=== PATIENT | female | born 1955 | race Caucasian/White ===

== ENCOUNTER → 2016-07-29 | Outpatient (CLI) | payer OTHER ==
[2016-07-29 14:20] LABS: BASO # 0.1 K/mm3 (0.0-0.2); BASO % 1.1 % (0.0-1.0); EOS # 0.4 K/mm3 (0.0-0.50); EOS % 6.4 % (0.0-3.0); LARGE UNSTAINED CELL # 0.1 K/mm3 (0.0-0.4); LYMPH # 1.7 K/mm3 (1.5-4.5); LYMPH % 26.6 % (24.0-44.0); MEAN CORPUSCULAR HEMOGLOBIN 22.8 pg (27.0-33.0); MEAN CORPUSCULAR HGB CONC 29.7 g/dl (32.0-36.5); MEAN CORPUSCULAR VOLUME 76.7 fl (80.0-96.0); MONO # 0.3 K/mm3 (0.0-0.8); MONO % 5.1 % (0.0-5.0); NEUTROPHILS # 3.4 K/mm3 (1.8-7.7); NEUTROPHILS % 58.7 % (36.0-66.0); PLATELET COUNT, AUTOMATED 489 k/mm3 (150-450); RED CELL DISTRIBUTION WIDTH 16.1 % (11.5-14.5); WHITE BLOOD COUNT 5.8 K/mm3 (4.0-10.0)
[2016-07-29 14:44] LABS: ALBUMIN 3.6 GM/DL (3.2-5.2); ALBUMIN/GLOBULIN RATIO 0.97 (1.00-1.93); ALKALINE PHOSPHATASE 99 U/L (45-117); ALT/SGPT 24 U/L (12-78); ANION GAP 6 MEQ/L (8-16); AST/SGOT 28 U/L (15-37); BILIRUBIN,TOTAL 0.3 MG/DL (0.2-1.0); BLOOD UREA NITROGEN 20 MG/DL (7-18); CALCIUM LEVEL 9.2 MG/DL (8.8-10.2); CARBON DIOXIDE LEVEL 30 MEQ/L (21-32); CHLORIDE LEVEL 106 MEQ/L (98-107); CREATININE FOR GFR 0.66 MG/DL (0.55-1.02); GLOMERULAR FILTRATION RATE > 60.0 (>45); GLUCOSE, FASTING 101 MG/DL (80-110); POTASSIUM SERUM 4.3 MEQ/L (3.5-5.1); SODIUM LEVEL 142 MEQ/L (136-145); TOTAL PROTEIN 7.3 GM/DL (6.4-8.2)
[2016-07-29 14:47] LABS: FOLATE 13.1 NG/ML (>5.4); VITAMIN B12 LEVEL 1609 PG/ML (247-911)
== END ==
LOC: M LAB 13:52
PROVIDERS: ATTEND Psychiatry & Neurology Neurology
DX: G35 Multiple sclerosis (principal)

== ENCOUNTER → 2016-09-14 | Outpatient (CLI) | payer OTHER ==
[~2016-09-14] MED LIST: VARIBAR PUDDING 40% w/v 230ML TUBE As Ordered ONE
--- NOTE | 2016-09-14 16:09 | REP ---
COOKIE SWALLOW: The procedure was performed under the direct supervision of Dr. Rivero. The procedure was performed with Fiorella Abdul from speech pathology present. 5 mL aliquots of nectar pudding solid and thin consistency barium was administered. There is no evidence of penetration or aspiration. A detailed report of this examination will be provided by speech pathology. 32 seconds of fluoroscopy time was utilized for this procedure. Reviewed by TIANNA Valdovinos 09/14/2016 04:24 PEdited and Signed by Gordo Rivero MD 09/15/2016 05:17 P
== END ==
LOC: M ST 09:53
PROVIDERS: ATTEND Psychiatry & Neurology Neurology
DX: R13.10 Dysphagia, unspecified (principal)

== ENCOUNTER → 2017-08-11 | Outpatient (REF) | payer OTHER ==
[2017-08-11 12:27] LABS: VITAMIN B12 LEVEL 370 PG/ML
[2017-08-11 12:29] LABS: FOLATE > 24.0 NG/ML
[2017-08-11 12:34] LABS: FERRITIN 6 NG/ML (8-252); IRON (FE) 20 UG/DL (50-170); TOTAL IRON BINDING CAPACITY 404 UG/DL (250-450)
== END ==
LOC: M LAB REF 11:36
DX: D64.9 Anemia, unspecified (principal)

== ENCOUNTER 2017-11-08 10:22 | Day surgery (SDC) | payer OTHER ==
[~2017-11-08 10:22] MED LIST changes: +LIDOCAINE 2% MDV 20 ML VIAL As Ordered; +PROPOFOL 200 MG/20 ML VIAL As Ordered; -VARIBAR PUDDING 40% w/v 230ML TUBE As Ordered ONE
[2017-11-08] MEDS: NS 1,000 ML IV (10:52)
[2017-11-08] MEDS ORDERED: PROPOFOL 200 MG/20 ML VIAL As Ordered (12:26)
== END 2017-11-08 13:02 | disposition home or self-care (01) ==
LOC: M OPP 10:22
DX: K64.0 First degree hemorrhoids (principal); D50.9 Iron deficiency anemia, unspecified; K44.9 Diaphragmatic hernia without obstruction or gangrene; G47.30 Sleep apnea, unspecified; E03.9 Hypothyroidism, unspecified; J44.9 Chronic obstructive pulmonary disease, unspecified; F41.9 Anxiety disorder, unspecified; F32.9 Major depressive disorder, single episode, unspecified; R51 Headache; G35 Multiple sclerosis; M32.9 Systemic lupus erythematosus, unspecified; M17.0 Bilateral primary osteoarthritis of knee; Z79.899 Other long term (current) drug therapy; Z78.0 Asymptomatic menopausal state; Z96.641 Presence of right artificial hip joint
CPT/HCPCS: 45378

== ENCOUNTER → 2018-04-18 | Outpatient (CLI) | payer OTHER ==
[~2018-04-18] MED LIST changes: +AVON1KIT SQ; +FISH1000 PO; +FOLI1TAB11 PO; +HYDR200T3 PO; +IRON325T7 PO; +LEVO150T7 PO; +LEXA1TAB2 PO; -LIDOCAINE 2% MDV 20 ML VIAL As Ordered; +MULTCAP PO; +OMEP40CA2 PO; -PROPOFOL 200 MG/20 ML VIAL As Ordered
--- NOTE | 2018-04-18 10:04 | REP ---
Chest two views HISTORY: Shortness of breath Comparison: 08/16/2017 A minimal increase in interstitial markings is present in the lungs consistent with chronic interstitial fibrosis. The cardiac silhouette is enlarged. The thoracic aorta is tortuous. The pulmonary vasculature is normal in appearance. Degenerative change is present in the thoracic spine. IMPRESSION: 1. Chronic interstitial fibrosis. 2. Cardiomegaly. Electronically Signed by Abbe Noel MD 04/18/2018 09:55 A
[2018-04-18 11:56] LABS: BASO # 0.1 10^3/uL (0.0-0.2); BASO % 1.2 % (0.0-1.0); EOS # 0.2 10^3/uL (0.0-0.50); HEMATOCRIT 42.2 % (36.0-47.0); HEMOGLOBIN 13.4 g/dl (12.0-15.5); LYMPH # 2.1 10^3/uL (1.5-4.5); LYMPH % 35.9 % (24.0-44.0); MEAN CORPUSCULAR HEMOGLOBIN 29.3 pg (27.0-33.0); MEAN CORPUSCULAR HGB CONC 31.8 g/dl (32.0-36.5); MEAN CORPUSCULAR VOLUME 92.1 fl (80.0-96.0); MONO # 0.5 10^3/uL (0.0-0.8); MONO % 7.9 % (0.0-5.0); NEUTROPHILS % 50.8 % (36.0-66.0); PLATELET COUNT, AUTOMATED 300 10^3/uL (150-450); RED BLOOD COUNT 4.58 10^6/uL (4.00-5.40); WHITE BLOOD COUNT 5.9 10^3/uL (4.0-10.0)
[2018-04-18 12:19] LABS: BLOOD UREA NITROGEN 16 MG/DL (7-18); CALCIUM LEVEL 9.2 MG/DL (8.8-10.2); CARBON DIOXIDE LEVEL 28 MEQ/L (21-32); CHLORIDE LEVEL 105 MEQ/L (98-107); CREATININE FOR GFR 0.62 MG/DL (0.55-1.30); GLOMERULAR FILTRATION RATE > 60.0 (>45); GLUCOSE, FASTING 80 MG/DL (70-100); POTASSIUM SERUM 4.7 MEQ/L (3.5-5.1); SODIUM LEVEL 140 MEQ/L (136-145)
[2018-04-18 12:20] LABS: ALBUMIN 3.7 GM/DL (3.2-5.2); ALT/SGPT 34 U/L (12-78); BILIRUBIN,TOTAL 0.5 MG/DL (0.2-1.0); TOTAL PROTEIN 7.3 GM/DL (6.4-8.2)
== END ==
LOC: M WUC 09:38
PROVIDERS: ATTEND Physician Assistant
DX: R06.02 Shortness of breath (principal); J84.9 Interstitial pulmonary disease, unspecified; I51.7 Cardiomegaly

== ENCOUNTER → 2018-07-17 | Outpatient (REF) | payer OTHER ==
[~2018-07-17] MED LIST changes: +FERR325T82 PO; -IRON325T7 PO
[2018-07-17 18:25] LABS: C REACTIVE PROTEIN QUANTITATIV 0.89 MG/DL (0.00-0.30)
== END ==
LOC: M LAB REF 17:31
PROVIDERS: ATTEND Nurse Practitioner Family
DX: M32.9 Systemic lupus erythematosus, unspecified (principal)

== ENCOUNTER → 2018-07-31 | Outpatient (REF) | payer OTHER ==
[2018-07-31 18:03] LABS: BASO # 0.1 10^3/uL (0.0-0.2); BASO % 0.8 % (0.0-1.0); EOS # 0.3 10^3/uL (0.0-0.50); EOS % 4.3 % (0.0-3.0); HEMATOCRIT 39.4 % (36.0-47.0); HEMOGLOBIN 12.3 g/dl (12.0-15.5); LYMPH # 2.4 10^3/uL (1.5-4.5); LYMPH % 36.5 % (24.0-44.0); MEAN CORPUSCULAR HEMOGLOBIN 28.4 pg (27.0-33.0); MEAN CORPUSCULAR HGB CONC 31.2 g/dl (32.0-36.5); MONO # 0.4 10^3/uL (0.0-0.8); MONO % 6.8 % (0.0-5.0); NEUTROPHILS # 3.3 10^3/uL (1.8-7.7); NEUTROPHILS % 51.3 % (36.0-66.0); PLATELET COUNT, AUTOMATED 309 10^3/uL (150-450); RED BLOOD COUNT 4.33 10^6/uL (4.00-5.40); WHITE BLOOD COUNT 6.5 10^3/uL (4.0-10.0)
[2018-07-31 18:07] LABS: ALBUMIN 3.8 GM/DL (3.2-5.2); ALT/SGPT 29 U/L (12-78); BILIRUBIN,TOTAL 0.4 MG/DL (0.2-1.0); BLOOD UREA NITROGEN 21 MG/DL (7-18); CALCIUM LEVEL 9.3 MG/DL (8.8-10.2); CARBON DIOXIDE LEVEL 28 MEQ/L (21-32); CHLORIDE LEVEL 103 MEQ/L (98-107); CREATININE FOR GFR 0.62 MG/DL (0.55-1.30); GLOMERULAR FILTRATION RATE > 60.0 (>45); GLUCOSE, FASTING 87 MG/DL (70-100); POTASSIUM SERUM 4.5 MEQ/L (3.5-5.1); SODIUM LEVEL 137 MEQ/L (136-145); TOTAL 25(OH) VITAMIN D 33.1 NG/ML (30.0-100.0); TOTAL PROTEIN 6.9 GM/DL (6.4-8.2); VITAMIN B12 LEVEL 520 PG/ML
[2018-07-31 18:08] LABS: FOLATE 18.4 NG/ML
[2018-08-02 10:14] LABS: HERPES ZOSTER, VARICELLA IgG >4000 index (Immune >165)
== END ==
LOC: M LABNEURO 14:56
PROVIDERS: ATTEND Psychiatry & Neurology Neurology
DX: G35 Multiple sclerosis (principal)

== ENCOUNTER → 2018-08-16 | Outpatient (CLI) | payer OTHER ==
--- NOTE | 2018-08-16 11:32 | REP ---
Clinical: Venous insufficiency . Technique: Rivero scale and color Doppler evaluation using linear high frequency transducer with reflux evaluation. Findings: Ultrasound examination of the right and left lower extremity deep venous structures from the common femoral vein to the popliteal vein demonstrates normal compressibility flow and wave patterns in response to respiration and augmentation. There is no evidence for deep venous thrombosis. Complex left Kang's cyst measures 6.8 x 2.5 x 3.9 cm. Right lower extremity demonstrates reflux through the proximal saphenous vein measuring 8.5 mm diameter with reflux duration 5.4 seconds and of the distal greater saphenous vein at the knee measuring 3.7 mm diameter with reflux duration 7.1 seconds. Lesser saphenous vein demonstrates reflux and measures 3.2 mm diameter with reflux duration 7.1 seconds. Reflux also identified through the proximal/mid superficial femoral vein. Left lower extremity demonstrates no significant reflux. Impression: 1. No evidence for deep venous thrombosis. 2. Reflux noted through portions of the right deep and superficial systems as described above and detailed in the accompanying worksheet. 3. Complex Kang's cyst in the left popliteal fossa. Electronically Signed by Marky De La O MD 08/16/2018 11:24 A
== END ==
LOC: M RAD 08:41
PROVIDERS: ATTEND Surgery Vascular Surgery
DX: I87.2 Venous insufficiency (chronic) (peripheral) (principal); M71.22 Synovial cyst of popliteal space [Baker], left knee

== ENCOUNTER → 2019-01-24 | Outpatient (REF) | payer OTHER ==
[~2019-01-24] MED LIST changes: -OMEP40CA2 PO; +OMEP40CA97 PO
== END ==
LOC: M LAB REF 14:38
PROVIDERS: ATTEND Radiology Diagnostic Radiology
DX: N60.21 Fibroadenosis of right breast (principal)

== ENCOUNTER 2020-03-07 09:59 | Emergency (ER) | payer MEDICARE, OTHER ==
[~2020-03-07] VITALS: Ht 175.3 cm; Wt 118.2 kg
[2020-03-07] MEDS ORDERED: ONDA4TAB6 PO (10:13)
[2020-03-07] MEDS ORDERED: NS 1,000 ML IV ONE (10:30)
[2020-03-07] MEDS ORDERED: METOCLOPRAMIDE INJ 10MG/2ML VIAL (J2765 PER 1) IV ONE (11:00)
--- NOTE | 2020-03-07 12:41 | REP ---
INDICATION: cough, sob COVID +. COMPARISON: 04/18/2018. TECHNIQUE: SINGLE PORTABLE AP VIEW OF THE CHEST WAS PERFORMED. FINDINGS: Mild scattered interstitial fibrotic changes stable. There is no acute infiltrate. There is mild cardiomegaly. There is mild tortuosity of the thoracic aorta. The mediastinal silhouette is unchanged. IMPRESSION: Mild cardiomegaly and chronic changes. No acute infiltrate. <Electronically signed by Gordo Rivero > 03/07/20 0639
[2020-03-07 12:46] LABS: BASO % 0.5 % (0.0-1.0); EOS % 0.3 % (0.0-3.0); HEMATOCRIT 38.8 % (36.0-47.0); HEMOGLOBIN 11.5 g/dl (12.0-15.5); LYMPH # 0.8 10^3/uL (1.5-5.0); LYMPH % 19.7 % (24.0-44.0); MEAN CORPUSCULAR HEMOGLOBIN 25.4 pg (27.0-33.0); MEAN CORPUSCULAR HGB CONC 29.6 g/dl (32.0-36.5); MEAN CORPUSCULAR VOLUME 85.8 fl (80.0-96.0); MONO # 0.2 10^3/uL (0.0-0.8); MONO % 5.8 % (0.0-5.0); NEUTROPHILS # 2.8 10^3/uL (1.5-8.5); NEUTROPHILS % 73.4 % (36.0-66.0); PLATELET COUNT, AUTOMATED 202 10^3/uL (150-450); RED BLOOD COUNT 4.52 10^6/uL (4.00-5.40); WHITE BLOOD COUNT 3.8 10^3/uL (4.0-10.0)
[2020-03-07 12:59] LABS: INR 0.93; PROTHROMBIN TIME 12.7 SECONDS (12.5-14.3)
[2020-03-07 13:11] LABS: ALT/SGPT 25 U/L (12-78); BLOOD UREA NITROGEN 11 MG/DL (7-18); CALCIUM LEVEL 8.1 MG/DL (8.8-10.2); CARBON DIOXIDE LEVEL 28 MEQ/L (21-32); CHLORIDE LEVEL 106 MEQ/L (98-107); CREATININE FOR GFR 0.55 MG/DL (0.55-1.30); GLOMERULAR FILTRATION RATE > 60.0 (>45); GLUCOSE, FASTING 96 MG/DL (70-100); POTASSIUM SERUM 3.6 MEQ/L (3.5-5.1); SODIUM LEVEL 137 MEQ/L (136-145)
[2020-03-07 13:12] LABS: ALBUMIN 3.1 GM/DL (3.2-5.2); BILIRUBIN,TOTAL 0.5 MG/DL (0.2-1.0); C REACTIVE PROTEIN QUANTITATIV 3.87 MG/DL (0.00-0.30); CK-MB VALUE MASS 2.6 NG/ML (<3.6); CPK CREATINE PHOSPHOKINASE 300 U/L (26-192); LDH LACTATE DEHYDROGENASE 239 U/L (84-246); MB/CK RELATIVE INDEX 0.87 (< OR =4); TOTAL PROTEIN 6.7 GM/DL (6.4-8.2); TROPONIN I < 0.02 NG/ML (< 0.10)
[2020-03-07] MEDS ORDERED: NS 1,000 ML IV SCH (14:57)
[2020-03-07] MEDS ORDERED: diphenhydrAMINE 50MG/ML VIAL (J1200) IV PRN (15:00)
[2020-03-07] MEDS ORDERED: EPINEPHrine INJ 1 MG/ML 1ML AMP IM PRN (15:00)
[2020-03-07] MEDS ORDERED: ALBUTEROL SULFATE 2.5 MG/0.5 ML INH NEB SOLN INH PRN (15:00)
[2020-03-07] MEDS ORDERED: methylPREDNISolone 125MG 2ML VIAL IV PRN (15:00)
[2020-03-07] MEDS ORDERED: BAMLANIVIMAB 700 MG in NS 180 ML IV ONE (15:00)
[2020-03-07] MEDS ORDERED: ALBUTEROL 90 MCG/ACT 8GM HFA INHALER INH PRN (15:00)
--- NOTE | 2020-03-07 15:05 | IPNPDOC ---
Text Note Date of Service The patient was seen on 03/07/20. NOTE Subjective: patient was seen and examined at bedside. She presented to ED, p ositive for COVID-19. Saturating on RA at 94%, including on exertion. Would like Bamlanivimab infusion. Objective General: appears well, not in distress, not SOB HEENT: PERRLA, EOMI Neck: supple, normal ROM CVS: RRR, normal S1, S2 Lungs: reduced air entry b/l, otherwise clear, no wheeze, no rales, no crackles Abdo: soft, on tender, BS+ Skin: warm and dry Neuro: moving all 4 extremities Psych: AAOx 3 Assessment: 64 yo F with a hx of SLE, COPD, CP, presented to ED, COVID-19 +, for bamlanivimab infusion. Plan - labs and vitals reviewed - risks including anaphylaxis and in rare circumstances were explained. Consent form signed - COVID-19 Outpatient order set ordered. - proceed to bamlanivimad infusion - observe after admin for SS of anaphylaxis. - DC home upon completion. VS,Yovanibone, I+O VS, Fishbone, I+O Laboratory Tests 03/07/20 12:33 Vital Signs Date Time Temp Pulse Resp B/P (MAP) Pulse Ox O2 Delivery O2 Flow Rate FiO2 03/07/20 11:21 Automatic Cuff (NIBP) 03/07/20 10:00 98.3 86 20 94 Room Air ARINA STRICKLAND MD Mar 07, 2020 15:05
[2020-03-07 17:53] VITALS: BP 152/89
== END 2020-03-07 17:49 | disposition home or self-care (01) ==
LOC: EEVIPCON 09:59 → M ED 09:59
DX: U07.1 COVID-19 (principal); Z20.828 Contact with and (suspected) exposure to other viral communicable diseases; J44.9 Chronic obstructive pulmonary disease, unspecified; M32.9 Systemic lupus erythematosus, unspecified; G35 Multiple sclerosis; R50.9 Fever, unspecified; R05 Cough; R07.0 Pain in throat; M79.10 Myalgia, unspecified site; R09.82 Postnasal drip; R11.0 Nausea; R43.9 Unspecified disturbances of smell and taste; Z79.899 Other long term (current) drug therapy
CPT/HCPCS: 36415; 71045; 80053; 82550; 82553; 83605; 83615; 83735; 84145; 84484; 85025; 85610; 85730; 86140; 87486; 87581; 87633; 87798; 96361; 96374; 99283; J2765

== ENCOUNTER 2020-03-07 18:11 | Outpatient (CLI) | payer OTHER ==
[~2020-03-07] VITALS: Ht 176.5 cm; Wt 119.0 kg
[2020-03-07 17:52] VITALS: BP 142/86
[~2020-03-07 18:11] MED LIST changes: +ONDA4TAB6 PO
[2020-03-07] MEDS ORDERED: NS 1,000 ML IV SCH (19:04)
[2020-03-07] MEDS ORDERED: EPINEPHrine INJ 1 MG/ML 1ML AMP IM PRN (19:15)
[2020-03-07] MEDS ORDERED: ALBUTEROL SULFATE 2.5 MG/0.5 ML INH NEB SOLN INH PRN (19:15)
[2020-03-07] MEDS ORDERED: diphenhydrAMINE 50MG/ML VIAL (J1200) IV PRN (19:15)
[2020-03-07] MEDS ORDERED: methylPREDNISolone 125MG 2ML VIAL IV PRN (19:15)
[2020-03-07] MEDS ORDERED: ALBUTEROL 90 MCG/ACT 8GM HFA INHALER INH PRN (19:15)
[2020-03-07 21:14] VITALS: BP 139/75
[2020-03-07] MEDS ORDERED: BAMLANIVIMAB 700 MG in NS 180 ML IV ONE (21:30)
[2020-03-07 22:56] VITALS: BP 155/75
[2020-03-07 23:03] VITALS: BP 141/71
[2020-03-07 23:15] VITALS: BP 142/73
[2020-03-07 23:30] VITALS: BP 143/75
[2020-03-08] VITALS: BP 148/75
[2020-03-08 00:25] VITALS: BP 151/79
[2020-03-08 00:49] VITALS: BP 150/68
[2020-03-08 01:20] VITALS: BP 144/66
[2020-03-08 01:48] VITALS: BP 150/79
== END 2020-03-08 02:05 | disposition home or self-care (01) ==
LOC: M OPCLI4 18:11
PROVIDERS: ATTEND Family Medicine
DX: U07.1 COVID-19 (principal)
CPT/HCPCS: 96365; 96366; J1200

== ENCOUNTER 2020-03-16 13:42 | Inpatient (IN) | payer OTHER ==
[2020-03-16] MEDS ORDERED: NS 500 ML IV ONE (14:45)
[2020-03-16 15:37] LABS: BASO % 0.5 % (0.0-1.0); EOS # 0.1 10^3/uL (0.0-0.5); EOS % 1.4 % (0.0-3.0); HEMATOCRIT 37.6 % (36.0-47.0); HEMOGLOBIN 11.6 g/dl (12.0-15.5); LYMPH # 1.1 10^3/uL (1.5-5.0); LYMPH % 12.7 % (24.0-44.0); MEAN CORPUSCULAR HEMOGLOBIN 25.7 pg (27.0-33.0); MEAN CORPUSCULAR HGB CONC 30.9 g/dl (32.0-36.5); MEAN CORPUSCULAR VOLUME 83.4 fl (80.0-96.0); MONO # 0.6 10^3/uL (0.0-0.8); MONO % 7.2 % (0.0-5.0); NEUTROPHILS # 6.6 10^3/uL (1.5-8.5); NEUTROPHILS % 77.7 % (36.0-66.0); PLATELET COUNT, AUTOMATED 385 10^3/uL (150-450); RED BLOOD COUNT 4.51 10^6/uL (4.00-5.40); WHITE BLOOD COUNT 8.4 10^3/uL (4.0-10.0)
[2020-03-16 15:49] LABS: PARTIAL THROMBOPLASTIN TIME 30.4 SECONDS (24.2-38.5)
[2020-03-16 15:52] LABS: INR 1.05; PROTHROMBIN TIME 13.9 SECONDS (12.5-14.3)
[2020-03-16 16:07] LABS: ALBUMIN 2.7 GM/DL (3.2-5.2); ALT/SGPT 25 U/L (12-78); AMYLASE 36 U/L (25-115); BILIRUBIN,DIRECT 0.2 MG/DL (0.0-0.2); BILIRUBIN,TOTAL 0.9 MG/DL (0.2-1.0); BLOOD UREA NITROGEN 9 MG/DL (7-18); CARBON DIOXIDE LEVEL 31 MEQ/L (21-32); CHLORIDE LEVEL 99 MEQ/L (98-107); CK-MB VALUE MASS 3.1 NG/ML (<3.6); CPK CREATINE PHOSPHOKINASE 204 U/L (26-192); CREATININE FOR GFR 0.62 MG/DL (0.55-1.30); GLOMERULAR FILTRATION RATE > 60.0 (>45); GLUCOSE, FASTING 99 MG/DL (70-100); LIPASE 107 U/L (73-393); MB/CK RELATIVE INDEX 1.52 (< OR =4); POTASSIUM SERUM 3.3 MEQ/L (3.5-5.1); SODIUM LEVEL 137 MEQ/L (136-145); TOTAL PROTEIN 6.7 GM/DL (6.4-8.2); TROPONIN I < 0.02 NG/ML (< 0.10)
[2020-03-16] MEDS ORDERED: MORPHINE 2 MG/ML 1ML VIAL (J2270) IV PRN (18:15)
[2020-03-16] MEDS ORDERED: ISOVUE-370 76% 100ML VIAL As Ordered ONE (18:56)
[2020-03-16] MEDS ORDERED: ONDANSETRON 4MG/2ML VIAL IV ONE (19:30)
--- NOTE | 2020-03-16 19:56 | REPVR ---
PROCEDURE INFORMATION: Exam: CT Abdomen And Pelvis With Contrast Exam date and time: 03/16/2020 7:35 PM Age: 64 years old Clinical indication: Vomiting; Additional info: Intractable vomiting/covid TECHNIQUE: Imaging protocol: Computed tomography of the abdomen and pelvis with intravenous contrast. Radiation optimization: All CT scans at this facility use at least one of these dose optimization techniques: automated exposure control; mA and/or kV adjustment per patient size (includes targeted exams where dose is matched to clinical indication); or iterative reconstruction. Contrast material: ISOVUE 370; Contrast volume: 100 ml; Contrast route: INTRAVENOUS (IV); COMPARISON: No relevant prior studies available. FINDINGS: Lungs: Bibasilar semi-solid and solid pulmonary parenchymal infiltrates. Findings consistent with multifocal viral pneumonitis (organizing type) and known Covid diagnosis. Pleural space: Small right pleural effusion. Mediastinal space: A moderate para esophageal hiatal hernia is present. Liver: There is a diffuse decrease in hepatic parenchymal density, consistent with steatosis. Gallbladder and bile ducts: There are gallstones present. There is a suggestion of mild gallbladder wall thickening demonstrated. Correlation with ultrasound suggested. Pancreas: Normal. No ductal dilation. Spleen: Normal. No splenomegaly. Adrenal glands: Normal. No mass. Kidneys and ureters: Normal. No hydronephrosis. Stomach and bowel: Unremarkable. No obstruction. No mucosal thickening. Appendix: No evidence of appendicitis. Intraperitoneal space: Unremarkable. No free air. No significant fluid collection. Vasculature: Unremarkable. No abdominal aortic aneurysm. Lymph nodes: Unremarkable. No enlarged lymph nodes. Urinary bladder: Unremarkable as visualized. Reproductive: Abnormal widening of the endometrial canal measuring 1.5 cm. Findings worrisome for neoplasm in this age group. Correlation with ultrasound and possibly pelvic MRI suggested if deemed clinically appropriate. Bones/joints: Severe central spinal stenosis L3-L4 and moderate to severe central spinal stenosis L4-L5. Bilateral facet joint arthropathy L5-S1. Status post right hip arthroplasty. Soft tissues: See "Reproductive" finding. IMPRESSION: 1. Bibasilar semi-solid and solid pulmonary parenchymal infiltrates. Findings consistent with multifocal viral pneumonitis (organizing type) and known Covid diagnosis. 2. Small right pleural effusion. 3. There is a diffuse decrease in hepatic parenchymal density, consistent with steatosis. 4. There are gallstones present. There is a suggestion of mild gallbladder wall thickening demonstrated. Correlation with ultrasound suggested. 5. Abnormal widening of the endometrial canal measuring 1.5 cm. Findings worrisome for neoplasm in this age group. Correlation with ultrasound and possibly pelvic MRI suggested if deemed clinically appropriate. 6. A moderate para esophageal hiatal hernia is present. Electronically signed by: Niko Rodgers On 03/16/2020 19:57:09 PM
--- NOTE | 2020-03-16 20:02 | REPVR ---
PROCEDURE INFORMATION: Exam: CT Angiography Chest With Contrast Exam date and time: 03/16/2020 7:35 PM Age: 64 years old Clinical indication: Shortness of breath; Additional info: Shortness of breath, covid TECHNIQUE: Imaging protocol: Computed tomographic angiography of the chest with intravenous contrast. 3D rendering (Not supervised by radiologist): MIP and/or 3D reconstructed images were created by the technologist. Radiation optimization: All CT scans at this facility use at least one of these dose optimization techniques: automated exposure control; mA and/or kV adjustment per patient size (includes targeted exams where dose is matched to clinical indication); or iterative reconstruction. Contrast material: ISOVUE 370; Contrast volume: 100 ml; Contrast route: INTRAVENOUS (IV); COMPARISON: [place] PORTABLE CHEST X-RAY 03/07/2020 12:12 PM FINDINGS: Pulmonary arteries: There are no pulmonary emboli. Aorta: Ectatic thoracic aorta. No dissection. Lungs: Bilateral ground-glass and solid pulmonary parenchymal infiltrates located predominantly bilaterally in the upper and lower lung zones extending to the pleural surfaces. Findings consistent with multifocal viral pneumonitis (organizing type) and known Covid diagnosis. Pleural space: Small right pleural effusion. Heart: Unremarkable. No cardiomegaly. No pericardial effusion. Lymph nodes: Multiple mediastinal lymph nodes likely postinflammatory. Bones/joints: The spine demonstrates mild degenerative changes. Soft tissues: Unremarkable. IMPRESSION: 1. Bilateral ground-glass and solid pulmonary parenchymal infiltrates located predominantly bilaterally in the upper and lower lung zones extending to the pleural surfaces. Findings consistent with multifocal viral pneumonitis (organizing type) and known Covid diagnosis. 2. Ectatic thoracic aorta. No dissection. 3. There are no pulmonary emboli. Electronically signed by: Niko Rodgers On 03/16/2020 20:02:21 PM
[2020-03-16] MEDS ORDERED: ONDANSETRON 4MG/2ML VIAL IV PRN (20:30)
[2020-03-16] MEDS ORDERED: MOM 30ML SUSPENSION UDC PO PRN (20:30)
[2020-03-16] MEDS ORDERED: MAALOX 30 ML SUSP *UDC PO PRN (20:30)
[2020-03-16] MEDS ORDERED: KCL 40MEQ in NS 1000ML 1,000 ML IV SCH (20:30)
--- NOTE | 2020-03-16 20:39 | HPEPDOC ---
[facility] Medical History & Physical Date of Admission Mar 16, 2020 Date of Service: Mar 16, 2020 Attending Physician: DES SMITH MD History and Physical TIME OF SERVICE: 9:51 PM CHIEF COMPLAINT: Nausea and vomiting HISTORY OF PRESENT ILLNESS: This 64 yr old F was diagnosed with COVID 19 about 10 days ago. Today she presented with c/o 6/10 in severity aching abdominal pain, and belching. She has been vomiting but her last episode was yesterday. She continues to have mild dyspnea that is worse with exertion, but denies having chest pain, fevers or chills. Per the patient desats to 88% when she stands up therefore he requested admission because of the hypoxia REVIEW OF SYSTEMS: 12 point review of systems negative except as listed in HPI PAST MEDICAL/ SURGICAL HISTORY: Migraines Multiple Sclerosis Hypothyroidism SLE Hepatic steatosis GHANSHYAM CPAP 6cm H2O R hip surgery SOCIAL HISTORY: She doesn't smoke or drink alcohol FAMILY HISTORY: n/a ALLERGIES: Please see below. HOME MEDICATIONS: Please see below. PHYSICAL EXAMINATION: VITAL SIGNS: Please see below.\\ GEN: well-nourished / well developed/ NAD INTEGUMENT: not flushed/ not jaundice HEENT: Mask in place covering nose and mouth CVS: RRR/NMRG/ radial pulses intact LUNGS: able to speak full sentences without stopping to take a breath / occasional coughing / lungs are clear to auscultation bilaterally on room air ABDOMEN: Contour (flat) / soft & not tender with palpation MSK/EXTREMITIES: NCAT / range of motion intact in all 4 extremities NEURO: CN 2-12 are grossly intact / speech is not dysarthric PSYCH: alert and oriented to person place and time/ able to understand and follow all commands LABORATORY DATA: See below. IMAGING: CT abdomen and pelvis "1. Bibasilar semi-solid and solid pulmonary parenchymal infiltrates. Findings consistent with multifocal viral pneumonitis (organizing type) and known Covid diagnosis. 2. Small right pleural effusion. 3. There is a diffuse decrease in hepatic parenchymal density, consistent with steatosis. 4. There are gallstones present. There is a suggestion of mild gallbladder wall thickening demonstrated. Correlation with ultrasound suggested. 5. Abnormal wi dening of the endometrial canal measuring 1.5 cm. Findings worrisome for neoplasm in this age group. Correlation with ultrasound and possibly pelvic MRI suggested if deemed clinically appropriate. 6. A moderate para esophageal hiatal hernia is present. CTA chest "IMPRESSION: 1. Bilateral ground-glass and solid pulmonary parenchymal infiltrates located predominantly bilaterally in the upper and lower lung zones extending to the pleural surfaces. Findings consistent with multifocal viral pneumonitis (organizing type) and known Covid diagnosis. 2. Ectatic thoracic aorta. No dissection. 3. There are no pulmonary emboli." MICROBIOLOGY: Please see below. ASSESSMENT: Ms. Sam is a 64-year-old with history of migraines, MS, hypothyroidism, SLE, hepatic steatosis, obesity, GHANSHYAM, diagnosis of Covid 19 over 10 days ago who presented with complaints of nausea and abdominal pain and was found to be hypoxemic; she will be admitted primarily for evaluation of nausea, vomiting and abdominal pain and for supplemental oxygen to manage COVID related hypoxemia. PLAN: 1 . Nausea, vomiting, abdominal pain. Possibly due to Covid 19 or gallbladder pathology. Plan: Admit to Covid floor/Zofran/IV fluids/clear liquid diets/follow-up liver ultrasound 2. Hypoxemia secondary to COVID-19 Pneumonitis She doesn't have fever or cough or leukocytosis but continues to have dyspnea with exertion Plan: contact precautions / Continues pulse ox/ supplemental O2 /per Covid order set f/u plts (if low indicates bad prognosis), CRP (if high indicates bad prognosis), troponins, INR, BMP, fibrinogen, INR, PT, PTT (if patient has DIC indicates bad prognosis), ferritin, LDH, procalcitonin (if low will help rule out bacterial PNA), troponins (if elevated will order Echo to rule out ca rdiomyopathy) / VBG to assess for hypoxia /will hold off of antibiotics because she doesn't have signs and symptoms consistent with bacterial pneumonia / She is not a candidate for remdisivir because hydroxychloroquine, which she takes chronically for SLE, decreases the activity of remdisivir / despite the hypoxia, I will not start steroids because will not start steroids because she has had the infection for at least 10 days 3.Hypokalemia secondary to vomiting. Plan: Potassium, chloride,/follow-up magnesium 4. Normocytic normochromic anemia Plan: Follow up iron panel and stool occult 5. Abnormal endometrium. Plan: Follow-up pelvic ultrasound 6. Hypothyroidism Plan: Levothyroxine 7. Multiple Sclerosis Plan: Avonex as scheduled 8. SLE Plan: Hydroxychloroquine 9. Hepatic steatosis Plan: Follow-up liver ultrasound and hepatitis panel 10. GHANSHYAM Plan: CPAP 6cm H2O with viral filiter DVT PROPHYLAXIS: lovenox & ASA DISPOSITION: home after more than 2 midnight's stay Vital Signs Vital Signs Date Time Temp Pulse Resp B/P (MAP) Pulse Ox O2 Delivery O2 Flow Rate FiO2 03/16/20 20:27 Room Air 03/16/20 19:00 16 03/16/20 18:18 72 96 03/16/20 16:00 98.8 Laboratory Data Labs 24H Laboratory Tests 2 03/16/20 15:10: Immature Granulocyte % (Auto) 0.5, Neutrophils (%) (Auto) 77.7H, Lymphocytes (%) (Auto) 12.7L, Monocytes (%) (Auto) 7.2H, Eosinophils (%) (Auto) 1.4, Basophils (%) (Auto) 0.5, Neutrophils # (Auto) 6.6, Lymphocytes # (Auto) 1.1L, Monocytes # (Auto) 0.6, Eosinophils # (Auto) 0.1, Basophils # (Auto) 0.0, Nucleated Red Blood Cells % (auto) 0.0, Prothrombin Time 13.9, Prothromb Time International Ratio 1.05, Activated Partial Thromboplast Time 30.4, Anion Gap 7L, Glomerular Filtration Rate > 60.0, Lactic Acid Level 1.1, Calcium Level 9.0, Total Bilirubin 0.9, Direct Bilirubin 0.2, Aspartate Amino Transf (AST/SGOT) 20, Alanine Aminotransferase (ALT/SGPT) 25, Alkaline Phosphatase 75, Total Creatine Kinase 204H, Creatine Kinase MB 3.1, Creatine Kinase MB Relative Index 1.52, Troponin I < 0.02, Total Protein 6.7, Albumin 2.7L, Albumin/Globulin Ratio 0.7L, Amylase Level 36, Lipase 107 CBC/BMP Laboratory Tests 03/16/20 15:10 Microbiology Microbiology 03/16/20 Blood Culture, Received Pending 03/16/20 Blood Culture, Received Pending Home Medications Scheduled Escitalopram Oxalate (Lexapro) 20 Mg Tab, 20 MG PO DAILY Hydroxychloroquine Sulfate (Hydroxychloroquine Sulfate) 200 Mg Tab, 200 MG PO DAILY Interferon Beta-1A (Avonex) 30 Mcg/0.5 Ml Kit, 0.5 ML SQ QWEEK SUNDAYS Levothyroxine Sodium (Synthroid) 175 Mcg Tablet, 175 MCG PO DAILY Multivitamins (Thera M Plus Tablet) 1 Each Tablet, 1 TAB PO DAILY Allergies Coded Allergies: No Known Allergies (Verified , 10/11/17) DES SMITH MD Mar 16, 2020 20:39
[2020-03-16 21:55] LABS: VENOUS BASE EXCESS 0.7 (-2.0-2.0); VENOUS HCO3 23.9 MEQ/L (23.0-27.0); VENOUS O2 SATURATION 94.3 % (60.0-80.0); VENOUS PARTIAL PRESSURE CO2 33.4 mmHg (38.0-50.0); VENOUS PARTIAL PRESSURE O2 69.8 mmHg (30.0-50.0); VENOUS PH 7.472 UNITS (7.330-7.430); VENOUS STANDARD HCO3 25.1 MEQ/L; VENOUS TOTAL CO2 24.9 MEQ/L (24.0-28.0)
[2020-03-16] MEDS ORDERED: VITMTA PO (22:04)
[2020-03-16] MEDS ORDERED: SYNT175T2 PO (22:04)
[2020-03-16 22:13] LABS: INR 1.05; PROTHROMBIN TIME 13.9 SECONDS (12.5-14.3)
[2020-03-16 22:14] LABS: PARTIAL THROMBOPLASTIN TIME 31.6 SECONDS (24.2-38.5)
[2020-03-16 22:17] LABS: D-DIMER QUANT 3039.17 ng/ml (<500)
[2020-03-17 00:28] VITALS: BP 134/72
[2020-03-17] MEDS: ACETAMINOPHEN TAB 650MG DOSE (2X325MG) PO PRN ×2 (00:34→08:35)
--- NOTE | 2020-03-17 00:36 | ECGEPIP ---
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
[2020-03-17 00:48] VITALS: O2SAT 94
[2020-03-17 03:26] LABS: BASO % 0.4 % (0.0-1.0); EOS # 0.1 10^3/uL (0.0-0.5); EOS % 1.2 % (0.0-3.0); HEMATOCRIT 35.5 % (36.0-47.0); HEMOGLOBIN 10.8 g/dl (12.0-15.5); LYMPH # 0.9 10^3/uL (1.5-5.0); LYMPH % 10.5 % (24.0-44.0); MEAN CORPUSCULAR HEMOGLOBIN 25.6 pg (27.0-33.0); MEAN CORPUSCULAR HGB CONC 30.4 g/dl (32.0-36.5); MEAN CORPUSCULAR VOLUME 84.1 fl (80.0-96.0); MONO # 0.8 10^3/uL (0.0-0.8); MONO % 8.6 % (0.0-5.0); NEUTROPHILS # 7.1 10^3/uL (1.5-8.5); PLATELET COUNT, AUTOMATED 393 10^3/uL (150-450); RED BLOOD COUNT 4.22 10^6/uL (4.00-5.40)
[2020-03-17 03:37] LABS: INR 0.99; PROTHROMBIN TIME 13.3 SECONDS (12.5-14.3)
[2020-03-17 03:38] LABS: PARTIAL THROMBOPLASTIN TIME 32.6 SECONDS (24.2-38.5)
[2020-03-17 04:00] LABS: C REACTIVE PROTEIN QUANTITATIV 9.42 MG/DL (0.00-0.30); FERRITIN 50 NG/ML (8-252); LDH LACTATE DEHYDROGENASE 309 U/L (84-246); NT-PRO BNP 114 PG/ML (<125); TRIGLYCERIDES LEVEL 73 MG/DL (<150); TROPONIN I < 0.02 NG/ML (< 0.10)
[2020-03-17 04:16] VITALS: BP 129/69
[2020-03-17 06:00] VITALS: O2SAT 95
[2020-03-17] MEDS ORDERED: LEVOTHYROXINE 150MCG TABLET (0.15MG) PO SCH (06:00)
--- NOTE | 2020-03-17 06:29 | REPVR ---
PROCEDURE INFORMATION: Exam: US Abdomen, Limited; Right Upper Quadrant Exam date and time: 03/17/2020 5:34 AM Age: 64 years old Clinical indication: Abnormal findings; Abnormal radiologic finding of the abdomen; Radiologic exam and body structure: CT; Additional info: Nausea vomiting abnormal gallbladder on CT TECHNIQUE: Imaging protocol: US abdomen. Real time ultrasound with image documentation. Limited exam focused on the right upper quadrant. COMPARISON: CT ABD/PEL W/IV CONTRAST ONLY 03/16/2020 7:06 PM FINDINGS: Liver: Diffuse increased echogenicity, consistent with fatty infiltration. No intrahepatic biliary duct dilatation. Gallbladder: Gallbladder is distended and contains multiple gallstones and sludge. No significant gallbladder wall thickening or pericholecystic fluid. Common bile duct: Bile ducts are normal in caliber. CBD 6 mm. Pancreas: Visualized pancreas is unremarkable. Right kidney: Right kidney measures 11.8 cm in length and is unremarkable. IMPRESSION: 1. Distended gallbladder with sludge and gallstones. No evidence of cholecystitis. 2. No biliary duct dilatation. 3. Diffuse fatty infiltration of the liver. Electronically signed by: Marky Mantilla On 03/17/2020 06:29:22 AM
--- NOTE | 2020-03-17 06:40 | REPVR ---
PROCEDURE INFORMATION: Exam: US Pelvis Complete, Transabdominal and US Pelvis, Transvaginal Exam date and time: 03/17/2020 5:34 AM Age: 64 years old Clinical indication: Abnormal findings; Mass/lesion; Uterus; Additional info: Widened endometrial canal on CT suspicious for malignancy TECHNIQUE: Imaging protocol: Real-time transabdominal and transvaginal pelvic ultrasound (complete) with image documentation. Transvaginal imaging was used for better evaluation of the endometrium, adnexa, and/or cervix. COMPARISON: CT ABD/PEL W/IV CONTRAST ONLY 03/16/2020 7:06 PM FINDINGS: Uterus/cervix: Uterus measures 8.9 x 4.1 x 5.6 cm. No myometrial mass. The endometrium is thickened measuring 2 cm. There is a 2.0 x 1.1 x 1.3 cm area of heterogeneous echogenicity within the endometrial cavity which may represent an endometrial polyp, mass or other endometrial pathology. Few nabothian cysts within the cervix. Right adnexa: Right ovary is not visualized, obscured by bowel gas. Left adnexa: Left ovary is not visualized, obscured by bowel gas. Intraperitoneal space: No free fluid. Urinary bladder: Partially distended urinary bladder is unremarkable. IMPRESSION: Thickened endometrium with a 2.0 x 1.1 x 1.3 cm area of heterogeneous echogenicity which may represent an endometrial polyp, mass or other endometrial pathology. Recommend CADDIE consultation and tissue sampling. Electronically signed by: Marky Mantilla On 03/17/2020 06:40:36 AM
[2020-03-17 07:33] LABS: ALBUMIN 2.7 GM/DL (3.2-5.2); ALT/SGPT 24 U/L (12-78); BILIRUBIN,DIRECT 0.2 MG/DL (0.0-0.2); BILIRUBIN,TOTAL 0.9 MG/DL (0.2-1.0); C REACTIVE PROTEIN QUANTITATIV 8.92 MG/DL (0.00-0.30); CK-MB VALUE MASS 2.9 NG/ML (<3.6); CPK CREATINE PHOSPHOKINASE 199 U/L (26-192); FERRITIN 51 NG/ML (8-252); IRON (FE) 22 UG/DL (50-170); LDH LACTATE DEHYDROGENASE 214 U/L (84-246); MAGNESIUM LEVEL 2.2 MG/DL (1.8-2.4); MB/CK RELATIVE INDEX 1.46 (< OR =4); NT-PRO BNP 106 PG/ML (<125); PERCENT SATURATION 8.9 % (13.2-45.0); TOTAL IRON BINDING CAPACITY 246 UG/DL (250-450); TOTAL PROTEIN 6.4 GM/DL (6.4-8.2); TRIGLYCERIDES LEVEL 86 MG/DL (<150); TROPONIN I < 0.02 NG/ML (< 0.10)
[2020-03-17 08:00] VITALS: BP 139/67; O2SAT 95
[2020-03-17] MEDS ORDERED: ESCITALOPRAM OXALATE 10 MG TAB (LEXAPRO) PO SCH (09:00)
[2020-03-17] MEDS ORDERED: ENOXAPARIN 40MG/0.4ML SYRINGE (J1650 PER 10MG) SC SCH (09:00)
[2020-03-17] MEDS ORDERED: predniSONE 20 MG TAB PO SCH (09:00)
[2020-03-17] MEDS ORDERED: HYDROXYCHLOROQUINE 200 MG TAB PO SCH (09:00)
[2020-03-17] MEDS ORDERED: ASPIRIN 81 MG ENTERIC TAB PO SCH (09:00)
[2020-03-17 09:15] LABS: VITAMIN B12 LEVEL 477 PG/ML (247-911)
[2020-03-17 09:26] LABS: HEPATITIS B SURFACE ANTIGEN NEGATIVE (NEGATIVE)
[2020-03-17 09:54] LABS: HIV 1&2 SCREEN CENTAUR NEGATIVE (NEGATIVE)
[2020-03-17 12:00] VITALS: BP 152/75; O2SAT 94
[2020-03-17] MEDS ORDERED: PRED20TA PO (12:26)
--- NOTE | 2020-03-17 12:35 | DS.PDOC ---
Discharge Summary General Date of Admission Mar 16, 2020 at 20:22 Date of Discharge CHIEF COMPLAINT: Nausea and vomiting Final diagnosis Covid 19, infection Covid pneumonitis Viral gastroenteritis HISTORY OF PRESENT ILLNESS: This 64 yr old F was diagnosed with COVID 19 about 10 days ago. Today she presented with c/o 6/10 in severity aching abdominal pain, and belching. She has been vomiting but her last episode was yesterday.. She was diagnosed with gout and 1910 days back and in the ER as Per the patient desats to 88% when she stands up therefore he requested admission because of the hypoxia. The patient states that her abdominal pain this morning. Has been of better and she has not required any oxygen. She is saturating 97 on room air. She got a CT scan of the chest as well as abdomen, pelvis. And the results of those are below CT abdomen and pelvis Bibasilar semi-solid and solid pulmonary parenchymal i nfiltrates. Findings consistent with multifocal viral pneumonitis (organizing type) and known Covid diagnosis. There are gallstones present. There is a suggestion of mild gallbladder wall thickening demonstrated. Correlation with ultrasound suggested. Abnormal widening of the endometrial canal measuring 1.5 cm. Findings worrisome for neoplasm in this age group. Correlation with ultrasound and possibly pelvic MRI suggested if deemed clinically appropriate. CTA chest showed Bilateral ground-glass and solid pulmonary parenchymal infiltrates located predominantly bilaterally in the upper and lower lung zones extending to the pleural surfaces. Findings consistent with multifocal viral pneumonitis (organizing type) and known Covid diagnosis. There are no pulmonary emboli.". She also had ultrasound of the uterine Thickened endometrium with a 2.0 x 1.1 x 1.3 cm area of heterogeneous echogenicity which may represent an endometrial polyp, mass or other endometrial pathology. As she is on room air saturating well with the no signs of any respiratory distress and abdominal is completely benign. She is medically optimized for discharge. 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 For her endometrial biopsy once her cold symptoms are resolved. She understands and has been provided with all the information. She also has been advised that in case she starts having any shortness of breath or any chest pain. She is should contact ER or the PCP. She also will be given 20 of prednisone for the next 5 days because of her Covid 19 pneumonitis. All other home medications will be c ontinued. PHYSICAL EXAMINATION: VITAL SIGNS: Please see below.\\ GEN: well-nourished / well developed/ NAD INTEGUMENT: not flushed/ not jaundice HEENT: Mask in place covering nose and mouth CVS: RRR/NMRG/ radial pulses intact LUNGS: able to speak full sentences without stopping to take a breath, lungs are clear to auscultation bilaterally on room air ABDOMEN: Contour (flat) / soft & not tender with palpation MSK/EXTREMITIES: NCAT / range of motion intact in all 4 extremities NEURO: CN 2-12 are grossly intact / speech is not dysarthric PSYCH: alert and oriented to person place and time/ able to understand and follow all commands LABORATORY DATA: See below. IMAGING: As in HPI . Mediictations. As per discharge reconciliation medication list Activity as tolerated Diet. 2 g sodium diet Follow-up appointments. PCP in 1 week. [employer] in 1 week Condition on discharge. Patient is medically optimized for discharge Discharge disposition: Home Total time spent on this discharge including coordination of care, review of chart documentation and actual patient contact is around 35 minutes Discharge Summary PROCEDURES PERFORMED DURING STAY: [None]. ADMITTING DIAGNOSES: 1. . DISCHARGE DIAGNOSES: 1. . COMPLICATIONS/CHIEF COMPLAINT: Covid-19/Vomiting. HISTORY OF PRESENT ILLNESS: . HOSPITAL COURSE: . DISCHARGE MEDICATIONS: Please see below. ALLERGIES: Please see below. PHYSICAL EXAMINATION ON DISCHARGE: VITAL SIGNS: Please see below. GENERAL: HEENT: NECK: CARDIOVASCULAR EXAMINATION: RESPIRATORY EXAMINATION: ABDOMINAL EXAMINATION: EXTREMITIES: SKIN: NEUROLOGICAL EXAMINATION: PSYCHIATRIC EXAMINATION: LABORATORY DATA: Please see below. IMAGING: PROGNOSIS: ACTIVITY: [As tolerated]. DIET: DISCHARGE PLAN: DISPOSITION: . DISCHARGE INSTRUCTIONS: 1. . ITEMS TO FOLLOWUP ON ON OUTPATIENT: 1. . DISCHARGE CONDITION: [Stable]. TIME SPENT ON DISCHARGE: Greater than minutes. Vital Signs/I&Os Vital Signs Date Time Temp Pulse Resp B/P (MAP) Pulse Ox O2 Delivery O2 Flow Rate FiO2 03/17/20 08:00 95 Room Air 03/17/20 08:00 96.4 75 18 139/67 (91) 03/17/20 06:00 2.0 I&O- Last 24 Hours up to 6 AM 03/17/20 06:00 Intake Total 1300 ml Balance 1300 ml Laboratory Data Labs 24H Laboratory Tests 2 03/16/20 15:10: Immature Granulocyte % (Auto) 0.5, Neutrophils (%) (Auto) 77.7H, Lymphocytes (%) (Auto) 12.7L, Monocytes (%) (Auto) 7.2H, Eosinophils (%) (Auto) 1.4, Basophils (%) (Auto) 0.5, Neutrophils # (Auto) 6.6, Lymphocytes # (Auto) 1.1L, Monocytes # (Auto) 0.6, Eosinophils # (Auto) 0.1, Basophils # (Auto) 0.0, Nucleated Red Blood Cells % (auto) 0.0, Prothrombin Time 13.9, Prothromb Time International Ratio 1.05, Activated Partial Thromboplast Time 30.4, Anion Gap 7L, Glomerular Filtration Rate > 60.0, Lactic Acid Level 1.1, Calcium Level 9.0, Total James irubin 0.9, Direct Bilirubin 0.2, Aspartate Amino Transf (AST/SGOT) 20, Alanine Aminotransferase (ALT/SGPT) 25, Alkaline Phosphatase 75, Total Creatine Kinase 204H, Creatine Kinase MB 3.1, Creatine Kinase MB Relative Index 1.52, Troponin I < 0.02, Total Protein 6.7, Albumin 2.7L, Albumin/Globulin Ratio 0.7L, Amylase Level 36, Lipase 107 03/16/20 21:45: Prothrombin Time 13.9, Prothromb Time International Ratio 1.05, Activated Partial Thromboplast Time 31.6, Lactic Acid Level 0.9, Total Bilirubin 0.9, Direct Bilirubin 0.2, Aspartate Amino Transf (AST/SGOT) 17, Alanine Amino transferase (ALT/SGPT) 24, Alkaline Phosphatase 72, Total Creatine Kinase 199H, Creatine Kinase MB 2.9, Creatine Kinase MB Relative Index 1.46, Troponin I < 0.02, Total Protein 6.4, Albumin 2.7L, Albumin/Globulin Ratio 0.7L, Fibrinogen 511H, D-Dimer, Quantitative 3039.17H, Blood Gas Bicarbonate Standard 25.1, Venous Blood pH 7.472H, Venous Blood Partial Pressure CO2 33.4L, Venous Blood Partial Pressure O2 69.8H, Venous Blood Total Carbon Dioxide 24.9, Venous Blood HCO3 23.9, Venous Blood Oxygen Saturation 94.3H, Venous Blood Base Excess 0.7, Magnesium Level 2.2, Iron Level 22L, Total Iron Binding Capacity 246L, Transferrin % Saturation 8.9L, Ferritin 51, Lactate Dehydrogenase 214, C-Reactive Protein, Quantitative 8.92H, TQ-Aio-Q-Type Natriuretic Peptide 106, Triglycerides Level 86, Vitamin B12 Level 477, Folate 23.0, Procalcitonin <0.05, Hepatitis B Surface Antigen NEGATIVE, HIV Antigen/Antibody Combo Qual NEGATIVE 03/17/20 03:13: Immature Granulocyte % (Auto) 0.3, Neutrophils (%) (Auto) 79.0H, Lymphocytes (%) (Auto) 10.5L, Monocytes (%) (Auto) 8.6H, Eosinophils (%) (Auto) 1.2, Basophils (%) (Auto) 0.4, Neutrophils # (Auto) 7.1, Lymphocytes # (Auto) 0.9L, Monocytes # (Auto) 0.8, Eosinophils # (Auto) 0.1, Basophils # (Auto) 0.0, Nucleated Red Blood Cells % (auto) 0.0, Prothrombin Time 13.3, Prothromb Time International Ratio 0.99, Activated Partial Thromboplast Time 32.6, Troponin I < 0.02, Fibrinogen 540H, D-Dimer, Quantitative 2718.00H, Ferritin 50, Lactate Dehydrogenase 309H, C-Reactive Protein, Quantitative 9.42H, HQ-Yse-L-Type Natriuretic Peptide 114, Triglycerides Level 73, Procalcitonin <0.05 CBC/BMP Laboratory Tests 03/16/20 15:10 03/17/20 03:13 Microbiology Microbiology 03/16/20 Blood Culture, Received Pending 03/16/20 Blood Culture, Received Pending Discharge Medications Scheduled Escitalopram Oxalate (Lexapro) 20 Mg Tab, 20 MG PO DAILY, (Reported) Hydroxychloroquine Sulfate (Hydroxychloroquine Sulfate) 200 Mg Tab, 200 MG PO DAILY, (Reported) Interferon Beta-1A (Avonex) 30 Mcg/0.5 Ml Kit, 0.5 ML SQ QWEEK, (Reported) SUNDAYS Levothyroxine Sodium (Synthroid) 175 Mcg Tablet, 175 MCG PO DAILY, (Reported) Multivitamins (Thera M Plus Tablet) 1 Each Tablet, 1 TAB PO DAILY, (Reported) Prednisone (Prednisone) 20 Mg Tablet, 20 MG PO DAILY Allergies Coded Allergies: No Known Allergies (Verified , 10/11/17) AGUSTIN MAGDALENO MD Mar 17, 2020 12:35
[2020-03-22] MEDS ORDERED: [UNRECOGNIZED DRUG - OTHER] IM SCH (09:00)
[2020-03-22] MEDS ORDERED: AVONEX IM SCH (09:00)
== END 2020-03-17 14:28 | disposition home or self-care (01) | DRG 177 ==
LOC: EDBD 13:42 → M ED 13:42 → M ED INP 20:22 → M 4MAIN 03-17 00:18
PROVIDERS: ADMIT Internal Medicine; ATTEND Internal Medicine
DX: U07.1 COVID-19 (principal); J12.89 Other viral pneumonia; D58.9 Hereditary hemolytic anemia, unspecified; A08.4 Viral intestinal infection, unspecified; Z79.899 Other long term (current) drug therapy; G43.909 Migraine, unspecified, not intractable, without status migrainosus; G35 Multiple sclerosis; G47.33 Obstructive sleep apnea (adult) (pediatric); E03.9 Hypothyroidism, unspecified; E87.6 Hypokalemia

== ENCOUNTER → 2020-05-23 | Outpatient (CLI) | payer MEDICARE, OTHER ==
[~2020-05-23] MED LIST changes: +PRED20TA PO; +PROBCAP14 PO; +SYNT175T2 PO; +VITMTA PO; +[UNRECOGNIZED DRUG - OTHER] PO
== END ==
LOC: M LABSMTC 09:45
PROVIDERS: ATTEND Anesthesiology
DX: Z01.812 Encounter for preprocedural laboratory examination (principal); Z20.822 Contact with and (suspected) exposure to COVID-19

== ENCOUNTER 2020-05-28 08:20 | Day surgery (SDC) | payer MEDICARE, OTHER ==
[~2020-05-28] VITALS: Ht 175.3 cm; Wt 117.4 kg
[~2020-05-28 08:20] MED LIST changes: +LIDOCAINE 1% MDV 20ML VIAL SQ PRN; +LR 1,000 ML IV ONE
[2020-05-28] MEDS ORDERED: ONDANSETRON 4MG/2ML VIAL As Ordered ONE (08:39)
[2020-05-28] MEDS ORDERED: propofoL 200 MG/20 ML VIAL As Ordered ONE (08:39)
[2020-05-28] MEDS ORDERED: fentaNYL 100 MCG/2 ML INJECTION (J3010) As Ordered ONE (08:39)
[2020-05-28] MEDS ORDERED: LIDOCAINE 2% 100MG/5ML SDV (FOR ANES.) As Ordered ONE (08:39)
[2020-05-28] MEDS ORDERED: MIDAZOLAM INJ 2MG/2ML VIAL (J2250 PER 1MG) As Ordered ONE (08:39)
[2020-05-28] MEDS ORDERED: MEPERIDINE INJ 25 MG/ML VIAL (J2175) IV PRN (11:55)
[2020-05-28] MEDS ORDERED: LR 1,000 ML IV SCH (11:55)
[2020-05-28] MEDS ORDERED: ONDANSETRON 4MG/2ML VIAL IV PRN (11:55)
[2020-05-28] MEDS ORDERED: fentaNYL 100 MCG/2 ML INJECTION (J3010) IV PRN (11:55)
[2020-05-28] MEDS ORDERED: IBUPROFEN 400MG TAB PO PRN (11:55)
[2020-05-28 14:36] VITALS: BP 158/71
--- NOTE | 2020-05-28 16:13 | RO ---
OPERATIVE NOTE DATE OF OPERATION: 05/28/2020 PREOPERATIVE DIAGNOSES: Postmenopausal bleeding, thickened endometrium. POSTOPERATIVE DIAGNOSIS: Postmenopausal bleeding, thickened endometrium with polyps seen and removed. PROCEDURE: Dilatation and curettage (D and C) hysteroscopy with MyoSure polypectomy. SURGEON: Dr. Grewal CHECKMAN: None. ANESTHESIA: General endotracheal anesthesia. SPECIMENS: Endometrium with polyp, as already noted. BRIEF DESCRIPTION OF PROCEDURE AND FINDINGS: Ruth was brought to the operating room, where sufficient general endotracheal anesthesia was induced. She was prepped, draped, and positioned in the usual sterile fashion, the bladder emptied, and the anterior aspect of the cervix grasped with a single-tooth tenaculum. This was a very well supported uterus. I dilated the cervix and introduced the hysteroscope and saw two polyps, as noted in the photographs in the room, arising from the fundus and a little bit to the right side and a little bit of grossly endometrium around one of them at the base, and so MyoSure resection was undertaken with complete removal of both of these and the endometrium. Photographs were take to document that as well. Final passes with the curette were done to confirm normal uterine cry throughout, and the procedure was ended. Entirety of the specimen was sent together. ESTIMATED BLOOD LOSS: About 5 mL. FLUID REPLACEMENT: Crystalloid. COMPLICATIONS: None. CONDITION AND DISPOSITION: Ruth tolerated the procedure well and was recovering in the recovery room in good condition.
== END 2020-05-28 14:38 | disposition home or self-care (01) ==
LOC: M SDC 08:20
PROVIDERS: ATTEND Obstetrics & Gynecology
DX: N84.0 Polyp of corpus uteri (principal); N95.0 Postmenopausal bleeding; E03.9 Hypothyroidism, unspecified; K21.9 Gastro-esophageal reflux disease without esophagitis; J44.9 Chronic obstructive pulmonary disease, unspecified; G35 Multiple sclerosis; G47.33 Obstructive sleep apnea (adult) (pediatric); Z86.16 Personal history of COVID-19; M32.9 Systemic lupus erythematosus, unspecified; F41.9 Anxiety disorder, unspecified; F32.9 Major depressive disorder, single episode, unspecified; Z79.899 Other long term (current) drug therapy
CPT/HCPCS: 58558; 88305; J2250; J2405; J3010

== ENCOUNTER → 2020-07-03 | Outpatient (CLI) | payer SELFPAY ==
[~2020-07-03] MED LIST changes: -LIDOCAINE 1% MDV 20ML VIAL SQ PRN; -LR 1,000 ML IV ONE
== END ==
LOC: M LABSMTC 09:36
PROVIDERS: ATTEND Pediatrics
DX: Z20.822 Contact with and (suspected) exposure to COVID-19 (principal)

== ENCOUNTER → 2020-11-25 | Outpatient (CLI) | payer MEDICARE, OTHER ==
[~2020-11-25] MED LIST changes: +OMEP40CA4 PO; -OMEP40CA97 PO
--- NOTE | 2020-11-25 13:25 | REP ---
INDICATION: ABNORMAL FINDING OF LUNG FIELD. COMPARISON: Comparison chest CT study March 16, 2020. TECHNIQUE: Helical scanning is acquired. 3 mm axial images are generated. Coronal and sagittal MPR and coronal MIP images are generated. 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 On axial CT images, there is no evidence of pleural or pericardial effusion. A large hiatal hernia is confirmed. There is no evidence of hilar or mediastinal mass or adenopathy. No infiltrate or lung mass is appreciated. No significant pulmonary nodule is seen. There is a benign perifissural nodule along the major fissure on the left. The multifocal infiltrate pattern seen on the March 16, [address] study has resolved. There is no evidence of extra thoracic mass or adenopathy. Minimal vascular calcifications noted. Images through the upper abdomen confirm the presence of acute a densely calcified gallstones in the gallbladder. Normal adrenal glands are seen. Visualized upper abdominal structures are otherwise unremarkable. On bone window settings, no bony destructive lesion is appreciated. IMPRESSION: No active cardiopulmonary disease. Previously noted multifocal infiltrate pattern seen in on the February [address] study has resolved. There is a large hiatal hernia. Cholelithiasis is seen. <Electronically signed by Marshall Oscar > 11/25/20 [id number]
== END ==
LOC: M RAD 11:37
PROVIDERS: ATTEND Physician Assistant
DX: R91.8 Other nonspecific abnormal finding of lung field (principal); K44.9 Diaphragmatic hernia without obstruction or gangrene; K80.20 Calculus of gallbladder without cholecystitis without obstruction

== ENCOUNTER → 2020-12-22 | Outpatient (CLI) | payer MEDICARE, OTHER ==
[~2020-12-22] MED LIST changes: +METHACHOLINE KIT (J7674) INH ONE
--- NOTE | 2020-12-22 14:26 | PFTRPT ---
Height: 69.50 Inches Weight: 235.00 Lbs BSA: 2.22 Diagnosis: R06.2 DATE: 12/22/2020 ORDERED BY: ASTON Tenorio QUALITY: Study of excellent technical quality. PROCEDURE: Under protocol, methacholine was administered. At a dose of 0.25 mg or 1.375 CDUs, a 27% decline in the FEV1 was noted. PC of 0.08 is significant. Flow rates did return to baseline post-bronchodilator administration. IMPRESSION: Positive methacholine challenge study. MTDD
== END ==
LOC: M CARPUL 13:49
PROVIDERS: ATTEND Physician Assistant
DX: R06.2 Wheezing (principal)
CPT/HCPCS: 94070; 95070; J7674

== ENCOUNTER → 2021-01-19 | Outpatient (CLI) | payer MEDICARE, OTHER ==
[~2021-01-19] MED LIST changes: -METHACHOLINE KIT (J7674) INH ONE
--- NOTE | 2021-01-19 16:43 | REPMRS ---
Patient History The patient states she had a clinical breast exam in May 2020. Patient is postmenopausal. Family history of breast cancer at age 60 in sister, breast cancer at age 29 in paternal grandmother, breast cancer at age 50 in sister, colorectal cancer at age 50 or over in maternal grandmother. Benign stereotactic core biopsy of the right breast, January 24, 2019. Patient states no breast complaints today. Patient has signed MRS History Sheet. Digital Woman Screen Mammo: January 19, 2021 - Exam #: [id number] Bilateral CC and MLO view(s) were taken. Technologist: Neida Petty, Technologist Prior study comparison: January 13, 2020, bilateral digital mammo screening bilat, performed at [facility]. January 17, 2019, right breast digital mammo diagnostic unilateral, performed at [facility]. FINDINGS: The breast tissue is heterogeneously dense. This may lower the sensitivity of mammography. Screening. Digital screening (2D) mammography was performed bilaterally in the CC and MLO projections. Additionally, breast tomosynthesis (3D mammography) was performed bilaterally in the CC and MLO projections. Todays exam was compared to the prior exam/exams. By history, the patient has no complaints of a palpable breast abnormality or other significant breast complaints. The Volpara volumetric breast density category is C, the breasts are heterogenously dense which may obscure small masses. There is a stable biopsy clip in the right breast. The breasts are unchanged in size and shape. There are no klaudia-soft tissue densities or spiculated masses. There is no internal architectural distortion. There are no suspicious klaudia-calcific clusters. Skin thickening or nipple retraction is not present. IMPRESSION: BI-RADS Category 2- Benign Findings. There is no evidence of malignant alteration of the breasts. Followup examination recommended in one year. The lifetime Tyrer-Cuzick score is 15.4% This mammogram was read with the assistance of Ahaali,an FDA approved computer aided detection system for mammography. Due to the density of the breasts, MRI/whole breast screening ultrasound is warranted. Negative x-ray reports should not delay surgical consultation if a dominant or clinically suspicious mass is present. Not all breast cancers can be identified by mammography. Therefore, we recommend that you continue to perform regular breast self-examination and physical examination and then promptly contact your physician of any concerns or changes. Adenosis and dense breasts may obscure an underlying neoplasm. No significant changes when compared with prior studies. Assessment: BI-RADS/ACR category 2 mammogram. Benign Findings. Recommendation Routine screening mammogram of both breasts in 1 year. Electronically Signed By: Lokesh Sommers MD 01/19/21 [id number]
== END ==
LOC: M WHC 15:03
PROVIDERS: ATTEND Registered Nurse
DX: Z12.31 Encounter for screening mammogram for malignant neoplasm of breast (principal); Z80.3 Family history of malignant neoplasm of breast; Z80.0 Family history of malignant neoplasm of digestive organs

== ENCOUNTER → 2021-05-28 | Outpatient (REF) | payer MEDICARE, OTHER ==
[2021-05-28 17:19] LABS: C REACTIVE PROTEIN QUANTITATIV 0.66 MG/DL (0.00-0.30)
== END ==
LOC: M LAB REF 16:31
PROVIDERS: ATTEND Registered Nurse
DX: Z51.81 Encounter for therapeutic drug level monitoring (principal); Z79.899 Other long term (current) drug therapy; M32.9 Systemic lupus erythematosus, unspecified

== ENCOUNTER → 2022-02-10 | Outpatient (REF) | payer MEDICARE, OTHER ==
[2022-02-10 13:40] LABS: VITAMIN B12 LEVEL 379 PG/ML (211-911)
[2022-02-10 15:21] LABS: FOLATE > 24.0 NG/ML (>5.4)
== END ==
LOC: M LAB REF 11:19
PROVIDERS: ATTEND Registered Nurse
DX: D50.9 Iron deficiency anemia, unspecified (principal)

== ENCOUNTER → 2022-02-22 | Outpatient (CLI) | payer MEDICARE, OTHER | LOC: M WHC 13:51 | PROVIDERS: ATTEND Internal Medicine | DX: Z12.31 Encounter for screening mammogram for malignant neoplasm of breast (principal) ==

== ENCOUNTER 2022-03-06 12:59 | Emergency (ER) | payer MEDICARE, OTHER ==
[~2022-03-06] VITALS: Ht 175.3 cm; Wt 105.4 kg
[2022-03-06 13:00] VITALS: BP 167/77
[2022-03-06] MEDS ORDERED: diphenhydrAMINE 50MG/ML VIAL IV ONE (15:30)
[2022-03-06 15:33] LABS: BASO # 0.1 10^3/uL (0.0-0.2); BASO % 1.1 % (0.0-1.0); EOS # 0.4 10^3/uL (0.0-0.5); HEMATOCRIT 42.5 % (36.0-47.0); HEMOGLOBIN 13.9 g/dl (12.0-15.5); LYMPH # 1.4 10^3/uL (1.5-5.0); LYMPH % 32.3 % (24.0-44.0); MEAN CORPUSCULAR HEMOGLOBIN 29.9 pg (27.0-33.0); MEAN CORPUSCULAR HGB CONC 32.7 g/dl (32.0-36.5); MEAN CORPUSCULAR VOLUME 91.4 fl (80.0-96.0); MONO # 0.4 10^3/uL (0.0-0.8); MONO % 9.2 % (2.0-8.0); NEUTROPHILS # 2.2 10^3/uL (1.5-8.5); NEUTROPHILS % 49.2 % (36.0-66.0); PLATELET COUNT, AUTOMATED 248 10^3/uL (150-450); RED BLOOD COUNT 4.65 10^6/uL (4.00-5.40); WHITE BLOOD COUNT 4.4 10^3/uL (4.0-10.0)
[2022-03-06] MEDS ORDERED: methylPREDNISolone 125MG 2ML VIAL IV ONE (15:45)
[2022-03-06 15:56] LABS: BLOOD UREA NITROGEN 17 MG/DL (9-23); CALCIUM LEVEL 9.2 MG/DL (8.3-10.6); CARBON DIOXIDE LEVEL 27 MMOL/L (20-31); CHLORIDE LEVEL 106 MMOL/L (98-107); CREATININE FOR GFR 0.52 MG/DL (0.55-1.30); GLOMERULAR FILTRATION RATE > 60.0 (>45); GLUCOSE, FASTING 116 MG/DL (74-106); POTASSIUM SERUM 3.4 MMOL/L (3.5-5.1); SODIUM LEVEL 140 MMOL/L (136-145)
[2022-03-06 15:57] LABS: ERYTHROCYTE SEDIMENTATION RATE 18 mm/hr (0-30)
[2022-03-06] MEDS ORDERED: PRED20TA PO (16:07)
== END 2022-03-06 16:21 | disposition home or self-care (01) ==
LOC: M ED 12:59
DX: L52 Erythema nodosum (principal); M32.9 Systemic lupus erythematosus, unspecified; G35 Multiple sclerosis; Z79.890 Hormone replacement therapy; Z79.899 Other long term (current) drug therapy
CPT/HCPCS: 80048; 85025; 85652; 86140; 96374; 96375; 99283; J1200; J2930

== ENCOUNTER → 2022-07-14 | Outpatient (CLI) | payer MEDICARE, OTHER ==
[2022-07-14 17:17] LABS: BLOOD UREA NITROGEN 11 MG/DL (9-23); CREATININE FOR GFR 0.54 MG/DL (0.55-1.30); GLOMERULAR FILTRATION RATE > 60.0 (>45)
== END ==
LOC: M LAB 15:14
PROVIDERS: ATTEND Psychiatry & Neurology Neurology
DX: I10 Essential (primary) hypertension (principal)

== ENCOUNTER → 2023-04-27 | Outpatient (CLI) | payer MEDICARE, OTHER ==
[~2023-04-27] MED LIST changes: -HYDR200T3 PO; +HYDR200T46 PO
== END ==
LOC: M WHC 14:38
PROVIDERS: ATTEND Physician Assistant Medical
DX: Z12.31 Encounter for screening mammogram for malignant neoplasm of breast (principal); Z13.820 Encounter for screening for osteoporosis; M85.89 Other specified disorders of bone density and structure, multiple sites

== ENCOUNTER → 2023-06-20 | Outpatient (CLI) | payer MEDICARE, OTHER | LOC: M WUC 08:53 | PROVIDERS: ATTEND Physician Assistant Medical | DX: M51.36 Other intervertebral disc degeneration, lumbar region (principal); K80.20 Calculus of gallbladder without cholecystitis without obstruction ==

== ENCOUNTER 2023-08-17 17:41 | Emergency (ER) | payer MEDICARE, OTHER ==
[~2023-08-17] VITALS: Ht 177.8 cm; Wt 91.9 kg
[2023-08-17 20:39] VITALS: BP 179/99; TEMP 98.4; O2SAT 99
== END 2023-08-17 23:42 | disposition left against medical advice (07) ==
LOC: M ED 17:41
DX: Z53.21 Procedure and treatment not carried out due to patient leaving prior to being seen by health care provider (principal)

== ENCOUNTER 2023-08-24 00:19 | Emergency (ER) | payer MEDICARE, OTHER ==
[~2023-08-24] VITALS: Ht 175.3 cm; Wt 90.0 kg
[2023-08-24 01:14] LABS: BASO # 0.1 10^3/uL (0.0-0.2); BASO % 0.5 % (0.0-1.0); EOS % 0.2 % (0.0-3.0); HEMATOCRIT 45.5 % (36.0-47.0); HEMOGLOBIN 15.3 g/dl (12.0-15.5); LYMPH # 1.1 10^3/uL (1.5-5.0); LYMPH % 10.5 % (24.0-44.0); MEAN CORPUSCULAR HEMOGLOBIN 30.7 pg (27.0-33.0); MEAN CORPUSCULAR HGB CONC 33.6 g/dl (32.0-36.5); MEAN CORPUSCULAR VOLUME 91.4 fl (80.0-96.0); MONO # 0.4 10^3/uL (0.0-0.8); MONO % 3.6 % (2.0-8.0); NEUTROPHILS # 8.9 10^3/uL (1.5-8.5); PLATELET COUNT, AUTOMATED 310 10^3/uL (150-450); RED BLOOD COUNT 4.98 10^6/uL (4.00-5.40); WHITE BLOOD COUNT 10.5 10^3/uL (4.0-10.0)
[2023-08-24] MEDS: IPRATROPIUM 0.5MG/ALBUTEROL 2.5MG INH SOL UD 3ML (DUONEB) NEB ONE (01:44)
[2023-08-24] MEDS: BENZONATATE 100MG CAPSULE PO ONE (01:44)
[2023-08-24 01:52] LABS: LIPASE 36 U/L (12-53)
[2023-08-24 01:54] LABS: CPK CREATINE PHOSPHOKINASE 418 U/L (34-145); MB/CK RELATIVE INDEX 3.34 (< OR =4)
[2023-08-24 01:55] LABS: ALBUMIN 3.5 G/DL (3.2-5.2); ALKALINE PHOSPHATASE 80 U/L (46-116); ALT/SGPT 24 U/L (7.0-40); AST/SGOT 33 U/L (<34); BILIRUBIN,DIRECT 0.3 MG/DL (<0.4); BILIRUBIN,TOTAL 0.9 MG/DL (0.3-1.2); BLOOD UREA NITROGEN 14 MG/DL (9-23); CALCIUM LEVEL 9.2 MG/DL (8.3-10.6); CARBON DIOXIDE LEVEL 24 MMOL/L (20-31); CHLORIDE LEVEL 105 MMOL/L (98-107); CREATININE FOR GFR 0.57 MG/DL (0.55-1.30); GLOMERULAR FILTRATION RATE > 60.0 (>45); GLUCOSE, FASTING 140 MG/DL (74-106); POTASSIUM SERUM 4.2 MMOL/L (3.5-5.1); SODIUM LEVEL 138 MMOL/L (136-145); TOTAL PROTEIN 6.3 G/DL (5.7-8.2)
[2023-08-24] MEDS ORDERED: NITROGLYCERIN 0.4MG SUBL TABLET SL PRN (02:05)
[2023-08-24] MEDS ORDERED: HEPARIN SOD (PORCINE) 5000UNITS/ML 1ML VIAL/SYRINGE IV PRN (02:10)
[2023-08-24] MEDS: ASPIRIN 81MG CHEW TABLET PO ONE (02:22)
[2023-08-24] MEDS: FUROSEMIDE 40MG/4ML VIAL IV ONE (02:23)
[2023-08-24 02:28] LABS: CK-MB VALUE MASS 16.1 NG/ML (<3.6)
[2023-08-24 02:46] LABS: MB/CK RELATIVE INDEX 3.31 (< OR =4)
[2023-08-24 02:52] LABS: INR 0.95; PROTHROMBIN TIME 12.4 SECONDS (12.5-14.5)
[2023-08-24] MEDS ORDERED: HEPARIN DRIP 25,000 UNITS in IV 1 EA IV SCH (03:03)
[2023-08-24] MEDS: HEPARIN SOD (PORCINE) 5000UNITS/ML 1ML VIAL/SYRINGE IV ONE (03:15)
[2023-08-24 03:25] VITALS: BP 146/85; TEMP 97.4; O2SAT 96
== END 2023-08-24 03:27 | disposition short-term general hospital (02) ==
LOC: M ED 00:19
DX: I21.4 Non-ST elevation (NSTEMI) myocardial infarction (principal); J81.0 Acute pulmonary edema; I45.81 Long QT syndrome; J44.9 Chronic obstructive pulmonary disease, unspecified; K21.9 Gastro-esophageal reflux disease without esophagitis; G43.909 Migraine, unspecified, not intractable, without status migrainosus; F41.9 Anxiety disorder, unspecified; M32.9 Systemic lupus erythematosus, unspecified; E03.9 Hypothyroidism, unspecified; Z86.16 Personal history of COVID-19; Z79.899 Other long term (current) drug therapy
CPT/HCPCS: 71045; 80048; 80076; 82550; 82553; 83605; 83690; 83880; 84484; 85025; 85610; 85730; 87040; 87486; 87581; 87633; 87798; 93005; 93041; 96365; 96374; 96375; 99285; J1940

== ENCOUNTER 2023-09-08 13:34 | Emergency (ER) | payer MEDICARE, OTHER ==
[~2023-09-08] VITALS: Ht 175.3 cm; Wt 89.4 kg
[~2023-09-08 13:34] MED LIST changes: +ONDA-282 PO; -ONDA4TAB6 PO
[2023-09-08 13:36] VITALS: TEMP 98.7
[2023-09-08] MEDS ORDERED: METO1TAB32 PO (13:51)
[2023-09-08] MEDS ORDERED: ASPI81TA26 PO (13:51)
[2023-09-08] MEDS ORDERED: ATOR40TA75 PO (13:51)
[2023-09-08] MEDS ORDERED: LEVO125T4 PO (13:51)
[2023-09-08] MEDS ORDERED: ADVA230A INH (13:51)
[2023-09-08 14:21] LABS: BASO # 0.1 10^3/uL (0.0-0.2); BASO % 0.9 % (0.0-1.0); EOS # 0.1 10^3/uL (0.0-0.5); EOS % 1.6 % (0.0-3.0); HEMATOCRIT 42.7 % (36.0-47.0); HEMOGLOBIN 14.3 g/dl (12.0-15.5); LYMPH % 34.1 % (24.0-44.0); MEAN CORPUSCULAR HEMOGLOBIN 30.9 pg (27.0-33.0); MEAN CORPUSCULAR HGB CONC 33.5 g/dl (32.0-36.5); MEAN CORPUSCULAR VOLUME 92.2 fl (80.0-96.0); MONO # 0.4 10^3/uL (0.0-0.8); MONO % 6.9 % (2.0-8.0); NEUTROPHILS # 3.3 10^3/uL (1.5-8.5); NEUTROPHILS % 56.3 % (36.0-66.0); PLATELET COUNT, AUTOMATED 316 10^3/uL (150-450); RED BLOOD COUNT 4.63 10^6/uL (4.00-5.40); WHITE BLOOD COUNT 5.8 10^3/uL (4.0-10.0)
[2023-09-08 14:43] LABS: CK-MB VALUE MASS 3.3 NG/ML (<3.6)
[2023-09-08 14:45] LABS: BLOOD UREA NITROGEN 14 MG/DL (9-23); CARBON DIOXIDE LEVEL 26 MMOL/L (20-31); CHLORIDE LEVEL 107 MMOL/L (98-107); CREATININE FOR GFR 0.58 MG/DL (0.55-1.30); GLOMERULAR FILTRATION RATE > 60.0 (>45); GLUCOSE, FASTING 97 MG/DL (74-106); POTASSIUM SERUM 4.4 MMOL/L (3.5-5.1); SODIUM LEVEL 141 MMOL/L (136-145)
[2023-09-08 14:53] LABS: CPK CREATINE PHOSPHOKINASE 237 U/L (34-145); MB/CK RELATIVE INDEX 1.39 (< OR =4)
[2023-09-08] MEDS ORDERED: ISOVUE-370 76% 100ML VIAL As Ordered ONE (15:18)
[2023-09-08 15:33] LABS: CK-MB VALUE MASS 3.3 NG/ML (<3.6)
[2023-09-08 15:34] LABS: MB/CK RELATIVE INDEX 1.59 (< OR =4)
[2023-09-08] MEDS: PANTOPRAZOLE 40MG VIAL IV ONE (15:42)
[2023-09-08] MEDS: ASPIRIN 81MG CHEW TABLET PO ONE (15:42)
[2023-09-08] MEDS: MAALOX 30 ML SUSP *UDC PO ONE (15:43)
[2023-09-08 15:58] LABS: ALBUMIN 3.9 G/DL (3.2-5.2); ALKALINE PHOSPHATASE 83 U/L (46-116); ALT/SGPT 22 U/L (7.0-40); AST/SGOT 25 U/L (<34); BILIRUBIN,DIRECT 0.2 MG/DL (<0.4); BILIRUBIN,TOTAL 0.8 MG/DL (0.3-1.2); TOTAL PROTEIN 6.7 G/DL (5.7-8.2)
[2023-09-08 16:00] LABS: THYROID STIMULATING HORMONE 0.703 uIU/ML (0.55-4.78)
[2023-09-08] MEDS: NS 1,000 ML IV ONE (17:50)
[2023-09-08] MEDS ORDERED: MED REC IN PROGRESS XX SCH (18:55)
[2023-09-08] MEDS ORDERED: VITA45CA PO (19:36)
[2023-09-08] MEDS ORDERED: RA B1TAB7 PO (19:36)
[2023-09-08] MEDS ORDERED: MAGN250T11 PO (19:36)
[2023-09-08] MEDS ORDERED: VITA200T6 PO (19:36)
[2023-09-08] MEDS ORDERED: HOME MED LIST COMPLETE! XX SCH (19:40)
[2023-09-08 20:30] VITALS: BP 149/76; O2SAT 99
[2023-09-08] MEDS ORDERED: PROT1TAB2 PO (20:52)
== END 2023-09-08 21:18 | disposition home or self-care (01) ==
LOC: M ED 13:34
DX: K44.9 Diaphragmatic hernia without obstruction or gangrene (principal); K80.80 Other cholelithiasis without obstruction; J98.11 Atelectasis; K21.9 Gastro-esophageal reflux disease without esophagitis; I45.81 Long QT syndrome; G35 Multiple sclerosis; M32.9 Systemic lupus erythematosus, unspecified; F41.9 Anxiety disorder, unspecified; F32.A Depression, unspecified; J44.9 Chronic obstructive pulmonary disease, unspecified; Z86.16 Personal history of COVID-19; Z79.82 Long term (current) use of aspirin; Z79.02 Long term (current) use of antithrombotics/antiplatelets; Z79.899 Other long term (current) drug therapy; Z95.9 Presence of cardiac and vascular implant and graft, unspecified
CPT/HCPCS: 70544; 70551; 71045; 71275; 80048; 80076; 82550; 82553; 84439; 84443; 84484; 85025; 85730; 86140; 93005; 93041; 94760; 96361; 96374; 99285; C9113; Q9967

== ENCOUNTER → 2023-12-01 | Outpatient (CLI) | payer MEDICARE, OTHER ==
[~2023-12-01] MED LIST changes: +ADVA230A INH; +ASPI81TA26 PO; +ATOR40TA75 PO; +LEVO125T4 PO; +MAGN250T11 PO; +METO1TAB32 PO; +PROT1TAB2 PO; +RA B1TAB7 PO; +VITA200T6 PO; +VITA45CA PO
== END ==
LOC: M RAD 14:40
PROVIDERS: ATTEND Physical Medicine & Rehabilitation
DX: M47.897 Other spondylosis, lumbosacral region (principal)

== ENCOUNTER 2023-12-06 03:09 | Emergency (ER) | payer MEDICARE, OTHER ==
[~2023-12-06] VITALS: Ht 175.3 cm; Wt 87.3 kg
[2023-12-06 03:09] VITALS: TEMP 97.7
[2023-12-06 03:45] LABS: BASO # 0.1 10^3/uL (0.0-0.2); BASO % 1.4 % (0.0-1.0); EOS # 0.1 10^3/uL (0.0-0.5); EOS % 2.5 % (0.0-3.0); HEMOGLOBIN 14.7 g/dl (12.0-15.5); LYMPH # 1.4 10^3/uL (1.5-5.0); LYMPH % 28.9 % (24.0-44.0); MEAN CORPUSCULAR HEMOGLOBIN 31.1 pg (27.0-33.0); MEAN CORPUSCULAR HGB CONC 34.2 g/dl (32.0-36.5); MEAN CORPUSCULAR VOLUME 90.9 fl (80.0-96.0); MONO # 0.3 10^3/uL (0.0-0.8); MONO % 5.7 % (2.0-8.0); NEUTROPHILS % 61.3 % (36.0-66.0); PLATELET COUNT, AUTOMATED 276 10^3/uL (150-450); RED BLOOD COUNT 4.73 10^6/uL (4.00-5.40); WHITE BLOOD COUNT 4.9 10^3/uL (4.0-10.0)
[2023-12-06 04:12] LABS: BLOOD UREA NITROGEN 13 MG/DL (9-23); CALCIUM LEVEL 9.4 MG/DL (8.3-10.6); CARBON DIOXIDE LEVEL 25 MMOL/L (20-31); CHLORIDE LEVEL 110 MMOL/L (98-107); CK-MB VALUE MASS 3.5 NG/ML (<3.6); CPK CREATINE PHOSPHOKINASE 405 U/L (34-145); CREATININE FOR GFR 0.64 MG/DL (0.55-1.30); GLOMERULAR FILTRATION RATE > 60.0 (>45); GLUCOSE, FASTING 100 MG/DL (74-106); MB/CK RELATIVE INDEX 0.86 (< OR =4); POTASSIUM SERUM 4.1 MMOL/L (3.5-5.1); SODIUM LEVEL 141 MMOL/L (136-145)
[2023-12-06 05:44] LABS: CK-MB VALUE MASS 3.3 NG/ML (<3.6)
[2023-12-06 05:46] LABS: MB/CK RELATIVE INDEX 0.94 (< OR =4)
[2023-12-06 06:15] VITALS: BP 145/70; O2SAT 99
== END 2023-12-06 06:35 | disposition home or self-care (01) ==
LOC: M ED 03:09
DX: R07.9 Chest pain, unspecified (principal); I25.2 Old myocardial infarction; Z86.79 Personal history of other diseases of the circulatory system; Z79.82 Long term (current) use of aspirin; Z79.02 Long term (current) use of antithrombotics/antiplatelets; Z79.899 Other long term (current) drug therapy

== ENCOUNTER → 2023-12-28 | Outpatient (CLI) | payer MEDICARE, OTHER ==
[~2023-12-28] MED LIST changes: +PROHANCE 279.3MG/ML 15ML VIAL ONE; +PROHANCE 279.3MG/ML 5ML VIAL ONE
== END ==
LOC: M PLAIMG 08:06
PROVIDERS: ATTEND Physical Medicine & Rehabilitation
DX: M47.897 Other spondylosis, lumbosacral region (principal)
CPT/HCPCS: 72149; A9576

== ENCOUNTER 2024-03-31 22:33 | Emergency (ER) | payer MEDICARE, OTHER ==
[~2024-03-31] VITALS: Ht 175.3 cm; Wt 80.0 kg
[~2024-03-31 22:33] MED LIST changes: -PROHANCE 279.3MG/ML 15ML VIAL ONE; -PROHANCE 279.3MG/ML 5ML VIAL ONE
[2024-04-01 03:59] LABS: CK-MB VALUE MASS 4.1 NG/ML (<3.6)
[2024-04-01 04:01] LABS: BLOOD UREA NITROGEN 15 MG/DL (9-23); CALCIUM LEVEL 9.4 MG/DL (8.3-10.6); CARBON DIOXIDE LEVEL 27 MMOL/L (20-31); CHLORIDE LEVEL 108 MMOL/L (98-107); CPK CREATINE PHOSPHOKINASE 265 U/L (34-145); CREATININE FOR GFR 0.64 MG/DL (0.55-1.30); GLOMERULAR FILTRATION RATE > 60.0 (>45); GLUCOSE, FASTING 103 MG/DL (74-106); MAGNESIUM LEVEL 2.1 MG/DL (1.8-2.4); MB/CK RELATIVE INDEX 1.54 (< OR =4); PHOSPHORUS LEVEL 3.2 MG/DL (2.4-5.1); POTASSIUM SERUM 4.3 MMOL/L (3.5-5.1); SODIUM LEVEL 142 MMOL/L (136-145)
[2024-04-01 04:11] LABS: BASO # 0.1 10^3/uL (0.0-0.2); EOS # 0.9 10^3/uL (0.0-0.5); EOS % 12.6 % (0.0-3.0); HEMOGLOBIN 13.9 g/dl (12.0-15.5); LYMPH # 2.5 10^3/uL (1.5-5.0); LYMPH % 36.6 % (24.0-44.0); MEAN CORPUSCULAR HEMOGLOBIN 30.8 pg (27.0-33.0); MEAN CORPUSCULAR HGB CONC 32.3 g/dl (32.0-36.5); MEAN CORPUSCULAR VOLUME 95.3 fl (80.0-96.0); MONO # 0.4 10^3/uL (0.0-0.8); MONO % 5.7 % (2.0-8.0); PLATELET COUNT, AUTOMATED 300 10^3/uL (150-450); RED BLOOD COUNT 4.51 10^6/uL (4.00-5.40); WHITE BLOOD COUNT 6.9 10^3/uL (4.0-10.0)
[2024-04-01 05:01] VITALS: BP 164/67
[2024-04-01 05:03] VITALS: TEMP 98; O2SAT 98
== END 2024-04-01 06:04 | disposition home or self-care (01) ==
LOC: EDBD 22:33 → M ED 22:33
DX: B34.2 Coronavirus infection, unspecified (principal); B34.8 Other viral infections of unspecified site; I10 Essential (primary) hypertension; K21.9 Gastro-esophageal reflux disease without esophagitis; G35 Multiple sclerosis; I25.2 Old myocardial infarction; M32.9 Systemic lupus erythematosus, unspecified; E78.5 Hyperlipidemia, unspecified; Z86.79 Personal history of other diseases of the circulatory system; Z79.82 Long term (current) use of aspirin; Z79.02 Long term (current) use of antithrombotics/antiplatelets; Z79.899 Other long term (current) drug therapy

== ENCOUNTER → 2024-05-24 | Outpatient (CLI) | payer MEDICARE, OTHER | LOC: M WHC 15:18 | PROVIDERS: ATTEND Physician Assistant Medical | DX: Z12.31 Encounter for screening mammogram for malignant neoplasm of breast (principal) ==

== ENCOUNTER → 2024-05-24 | Outpatient (CLI) | payer MEDICARE, OTHER | LOC: M RAD 14:49 | PROVIDERS: ATTEND Physical Medicine & Rehabilitation | DX: M47.892 Other spondylosis, cervical region (principal); M50.31 Other cervical disc degeneration, high cervical region; M50.320 Other cervical disc degeneration, mid-cervical region, unspecified level; Z53.9 Procedure and treatment not carried out, unspecified reason ==

== ENCOUNTER → 2024-06-26 | Outpatient (REF) | payer MEDICARE, OTHER | LOC: M LAB REF 11:37 | PROVIDERS: ATTEND Physician Assistant Medical | DX: R10.13 Epigastric pain (principal) ==

== ENCOUNTER → 2024-11-11 | Outpatient (CLI) | payer MEDICARE, OTHER ==
[~2024-11-11] MED LIST changes: +BUPR150T12 PO; +E-Z-GAS II EFFERVESCENT PACKET (SODIUM BICARB./CITRIC ACID/SIMETHICONE) As Ordered ONE; +E-Z-HD 98% w/w 340 GM SUSP BTL As Ordered ONE; +E-Z-PAQUE 96% w/w SUSP 176 GM BTL As Ordered ONE; +ENTR1TAB; +THERTAB52 PO
== END ==
LOC: M RAD 07:35
PROVIDERS: ATTEND Surgery
DX: K44.9 Diaphragmatic hernia without obstruction or gangrene (principal)

== ENCOUNTER → 2025-01-26 | Outpatient (REF) | payer MEDICARE, OTHER ==
[~2025-01-26] MED LIST changes: -E-Z-GAS II EFFERVESCENT PACKET (SODIUM BICARB./CITRIC ACID/SIMETHICONE) As Ordered ONE; -E-Z-HD 98% w/w 340 GM SUSP BTL As Ordered ONE; -E-Z-PAQUE 96% w/w SUSP 176 GM BTL As Ordered ONE
== END ==
LOC: M LAB REF 17:36
PROVIDERS: ATTEND Physician Assistant Medical
DX: B34.9 Viral infection, unspecified (principal)